=== PATIENT | female | born 1940 | race African-American/Black ===

== ENCOUNTER 2017-04-25 23:15 | Emergency (ER) | payer OTHER ==
[~2017-04-25] VITALS: Ht 167.6 cm; Wt 97.2 kg
[~2017-04-25 23:15] MED LIST: ALLO100T PO; ATOR10TA PO; ESTR0.6264 PO; HYDR-4005 PO; QUET25TA PO
[2017-04-26] MEDS ORDERED: ACETAMINOPHEN 325MG TABLET PO ONE
[2017-04-26 02:12] VITALS: BP 156/80
== END 2017-04-26 02:14 | disposition home or self-care (01) ==
LOC: ER 23:26
DX: S80.02XA Contusion of left knee, initial encounter (principal); I11.0 Hypertensive heart disease with heart failure; I50.9 Heart failure, unspecified; Z88.6 Allergy status to analgesic agent; Z79.899 Other long term (current) drug therapy; Z90.49 Acquired absence of other specified parts of digestive tract; Z90.710 Acquired absence of both cervix and uterus; Z87.891 Personal history of nicotine dependence; X58.XXXA Exposure to other specified factors, initial encounter; Y93.89 Activity, other specified; Y92.89 Other specified places as the place of occurrence of the external cause; Y99.8 Other external cause status
CPT/HCPCS: 73562; 99284

== ENCOUNTER 2017-05-13 11:44 | Observation (INO) | payer OTHER ==
[~2017-05-13] VITALS: Ht 168.9 cm; Wt 100.2 kg
[2017-05-13 12:19] LABS: BASOPHILS % 1.1 % (0.0-2.0); EOSINOPHILS % 4.2 % (0.0-5.0); HEMATOCRIT. 39.6 % (36.0-48.0); HEMOGLOBIN. 13.4 g/dL (12.0-16.0); LYMPHOCYTES % 39.4 % (20.0-50.0); MEAN CORPUSCULAR VOLUME 91.9 fL (81.0-99.0); MEAN PLATELET VOLUME 8.7 fl (7.4-10.4); MONOCYTES % 8.1 % (2.0-8.0); NEUTROPHILS % 47.2 % (40.0-76.0); PLATELET 167 x1000/uL (130-400); RED BLOOD CELL COUNT 4.31 mill/uL (4.2-5.4); RED CELL DISTRIBUTION WIDTH 13.8 % (11.6-14.6)
[2017-05-13 12:25] LABS: INR 1.1; PROTHROMBIN TIME 11.3 sec
[2017-05-13 12:35] LABS: CARBON DIOXIDE 30 mEq/L (21-32); CHLORIDE 104 mEq/L (98-107); TROPONIN I 0.03 ng/mL (0.00-0.04)
[2017-05-13 13:16] LABS: *AMPHETAMINES SCREEN URINE NEGATIVE (NEGATIVE); *BARBITURATES SCREEN URINE NEGATIVE (NEGATIVE); *BENZODIAZEPINES SCREEN URINE NEGATIVE (NEGATIVE); *COCAINE SCREEN URINE NEGATIVE (NEGATIVE); CANNABINOID URINE SCREEN NEGATIVE (NEGATIVE); METHADONE URINE SCREEN NEGATIVE (NEGATIVE); OPIATES URINE SCREEN NEGATIVE (NEGATIVE); PHENCYCLIDINE URINE SCREEN NEGATIVE (NEGATIVE)
[2017-05-13] MEDS ORDERED: CLONIDINE 0.1MG TABLET PO PRN (15:00)
[2017-05-13] MEDS ORDERED: ONDANSETRON HCL 4MG/2ML VIAL IV PRN (15:00)
[2017-05-13] MEDS ORDERED: ENOXAPARIN 40MG/0.4ML SYR SUBCUT SCH (15:00)
[2017-05-13] MEDS ORDERED: IPRATROPIUM/ALBUTEROL 0.5-3(2.5)MG/3ML NEB INH PRN (15:00)
[2017-05-13] MEDS ORDERED: HYDROCODONE/ACETAMINOPHEN 5/325MG TABLET PO PRN (15:00)
[2017-05-13] MEDS ORDERED: ACETAMINOPHEN 325MG TABLET PO PRN (15:00)
[2017-05-13 16:53] VITALS: BP 163/101
[2017-05-13 20:00] VITALS: BP 139/74
[2017-05-13] MEDS: ENOXAPARIN 30MG/0.3ML SYR SUBCUT SCH (20:52)
[2017-05-13] MEDS ORDERED: QUETIAPINE FUMARATE 25MG TABLET PO SCH (21:00)
[2017-05-13] MEDS ORDERED: ATORVASTATIN CALCIUM 10MG TABLET PO SCH (21:00)
[2017-05-13 22:13] LABS: CARBON DIOXIDE 28 mEq/L (21-32); CHLORIDE 104 mEq/L (98-107)
[2017-05-14] VITALS (8 sets, daily range): BP systolic 120–161; BP diastolic 73–105
[2017-05-14 05:47] LABS: BASOPHILS % 1.1 % (0.0-2.0); EOSINOPHILS % 6.2 % (0.0-5.0); HEMATOCRIT. 37.3 % (36.0-48.0); HEMOGLOBIN. 12.7 g/dL (12.0-16.0); LYMPHOCYTES % 40.8 % (20.0-50.0); MEAN CORPUSCULAR HEMOGLOBIN 31.3 pg (28.0-32.0); MEAN CORPUSCULAR VOLUME 92.3 fL (81.0-99.0); MEAN PLATELET VOLUME 8.8 fl (7.4-10.4); MONOCYTES % 10.8 % (2.0-8.0); NEUTROPHILS % 41.1 % (40.0-76.0); PLATELET 158 x1000/uL (130-400); RED BLOOD CELL COUNT 4.05 mill/uL (4.2-5.4); RED CELL DISTRIBUTION WIDTH 14.1 % (11.6-14.6)
[2017-05-14 06:34] LABS: TROPONIN I 0.03 ng/mL (0.00-0.04)
[2017-05-14 06:35] LABS: T4 FREE 0.8 ng/dL (0.76-1.46)
[2017-05-14] MEDS ORDERED: ASPIRIN 81MG EC TABLET PO SCH (09:00)
[2017-05-14] MEDS: ENOXAPARIN 30MG/0.3ML SYR SUBCUT SCH (09:00)
[2017-05-14] MEDS ORDERED: NICARDIPINE 100MCG/ML 10ML VIAL (CATH LAB) IV ONE (13:50)
[2017-05-14] MEDS ORDERED: NITROGLYCERIN 50MCG/ML 10ML VIAL (CATH LAB) IV ONE (13:50)
[2017-05-14] MEDS ORDERED: IODIXANOL 320MG/ML 100 ML BOTTLE IV ONE (13:59)
[2017-05-14] MEDS ORDERED: MIDAZOLAM HCL 2 MG/2 ML VIAL ONE (13:59)
[2017-05-14] MEDS ORDERED: LIDOCAINE HCL 1% 20ML VIAL (Pyxis) INJ ONE (13:59)
[2017-05-14] MEDS ORDERED: FENTANYL CITRATE/PF 50MCG/ML 2ML VIAL ONE (13:59)
[2017-05-14] MEDS ORDERED: ASPIRIN/SOD BICARB/CITRIC ACID 324MG TAB EFF ONE (14:00)
[2017-05-14] MEDS ORDERED: HEPARIN SODIUM 1,000 UNIT/1ML VIAL IV ONE (14:19)
[2017-05-14] MEDS ORDERED: ONDANSETRON HCL 4MG/2ML VIAL IV PRN (15:15)
[2017-05-14] MEDS ORDERED: MORPHINE SULFATE 2 MG/ML CPJ (NOT FOR IM USE) IV PRN (15:15)
[2017-05-14] MEDS ORDERED: ACETAMINOPHEN 325MG TABLET PO PRN (15:15)
[2017-05-14] MEDS ORDERED: ATROPINE SULFATE 1MG/10ML SYR IV PRN (15:15)
[2017-05-14] MEDS ORDERED: SODIUM CHLORIDE 0.45% 1,000 ML IV ONE (15:15)
== END 2017-05-14 20:50 | disposition home or self-care (01) ==
LOC: ER 12:22 → INTOOBSV 12:47 → 6WST 12:47 → ENRESERV 14:08
PROVIDERS: ADMIT Internal Medicine; ATTEND Internal Medicine
DX: I24.9 Acute ischemic heart disease, unspecified (principal); I50.9 Heart failure, unspecified; I11.0 Hypertensive heart disease with heart failure; E78.00 Pure hypercholesterolemia, unspecified; R11.2 Nausea with vomiting, unspecified; F31.9 Bipolar disorder, unspecified; I07.1 Rheumatic tricuspid insufficiency; I49.1 Atrial premature depolarization; E78.5 Hyperlipidemia, unspecified; Z79.82 Long term (current) use of aspirin; Z90.49 Acquired absence of other specified parts of digestive tract
CPT/HCPCS: 36415; 71010; 80048; 80061; 80305; 83880; 84439; 84443; 84484; 85025; 85610; 93005; 93458; 96372; 99285; C1769; C1887; C1893; G0378; J1644; J1650; J2250; J3010; J3490; Q9967